=== PATIENT | female | born 1970 | race Asian ===

== ENCOUNTER 2020-01-24 19:39 | Emergency (ER) | payer OTHER ==
[~2020-01-24] VITALS: Ht 152.4 cm; Wt 53.5 kg
[2020-01-24 19:39] VITALS: BP 120/67
== END 2020-01-24 20:26 | disposition home or self-care (01) ==
LOC: ER 19:46
DX: Z11.59 Encounter for screening for other viral diseases (principal)
CPT/HCPCS: 99283; U0003

== ENCOUNTER 2020-02-21 18:35 | Emergency (ER) | payer OTHER ==
[~2020-02-21] VITALS: Ht 152.4 cm; Wt 52.6 kg
[2020-02-21 18:38] VITALS: BP 117/75
--- NOTE | 2020-02-21 18:58 | NUR ---
Patient discharged to home in stable condition. Written and verbal after care instructions given. Patient verbalizes understanding of instruction.
--- NOTE | 2020-02-23 06:40 | NUR ---
RECEIVED RESULTS FROM LAB. NEGATIVE COVID
== END 2020-02-21 18:58 | disposition home or self-care (01) ==
LOC: ER 18:37
DX: Z03.818 Encounter for observation for suspected exposure to other biological agents ruled out (principal)
CPT/HCPCS: 99283; C9803; U0003

== ENCOUNTER 2020-03-03 18:57 | Emergency (ER) | payer OTHER ==
[~2020-03-03] VITALS: Ht 152.4 cm; Wt 52.6 kg
[2020-03-03 19:03] VITALS: BP 111/26
--- NOTE | 2020-03-03 19:19 | NUR ---
CORONAVIRUS SWAB SAMPLE COLLECTED AND SENT TO LAB.
== END 2020-03-03 19:24 | disposition home or self-care (01) ==
LOC: ER 18:57
DX: Z11.59 Encounter for screening for other viral diseases (principal)
CPT/HCPCS: 99283; C9803; U0003

== ENCOUNTER 2020-03-13 18:47 | Emergency (ER) | payer OTHER ==
[~2020-03-13] VITALS: Ht 152.4 cm; Wt 52.6 kg
[2020-03-13 18:54] VITALS: BP 132/93
--- NOTE | 2020-03-17 00:18 | NUR ---
RECEIVED COVID NEGATIVE RESULT FROM LAB
== END 2020-03-13 19:08 | disposition home or self-care (01) ==
LOC: ER 18:48
DX: Z03.818 Encounter for observation for suspected exposure to other biological agents ruled out (principal)
CPT/HCPCS: 99283; C9803; U0003

== ENCOUNTER 2020-03-19 19:26 | Emergency (ER) | payer OTHER ==
[~2020-03-19] VITALS: Ht 152.4 cm; Wt 52.6 kg
== END 2020-03-19 20:02 | disposition home or self-care (01) ==
LOC: ER 19:28
DX: Z03.818 Encounter for observation for suspected exposure to other biological agents ruled out (principal)
CPT/HCPCS: 99283; C9803; U0003

== ENCOUNTER 2020-03-26 19:36 | Emergency (ER) | payer OTHER ==
[~2020-03-26] VITALS: Ht 152.4 cm; Wt 52.6 kg
[2020-03-26 19:43] VITALS: BP 116/68
--- NOTE | 2020-03-26 19:44 | NUR ---
CALLED FOR COVID TEST
--- NOTE | 2020-03-26 20:30 | NUR ---
Patient discharged to home in stable condition. Written and verbal after care instructions given. Patient verbalizes understanding of instruction. Pt ambulatory with a steady gait
--- NOTE | 2020-03-26 20:30 | NUR ---
covid swab done and sent to lab
== END 2020-03-26 20:31 | disposition home or self-care (01) ==
LOC: ER 19:41
DX: Z11.59 Encounter for screening for other viral diseases (principal)
CPT/HCPCS: 99283; C9803; U0003

== ENCOUNTER 2020-04-30 15:27 | Emergency (ER) | payer OTHER ==
[~2020-04-30] VITALS: Ht 152.4 cm; Wt 51.7 kg
[2020-04-30 15:36] VITALS: BP 116/70
--- NOTE | 2020-04-30 15:53 | NUR ---
COVID SWAB SENT
== END 2020-04-30 15:53 | disposition home or self-care (01) ==
LOC: ER 15:27
DX: Z20.828 Contact with and (suspected) exposure to other viral communicable diseases (principal)
CPT/HCPCS: 99283; C9803; U0003

== ENCOUNTER 2020-05-07 15:50 | Emergency (ER) | payer OTHER ==
[~2020-05-07] VITALS: Ht 152.4 cm; Wt 51.3 kg
[2020-05-07 15:59] VITALS: BP 135/77
--- NOTE | 2020-05-08 12:57 | NUR ---
Negative COVID PCR results
== END 2020-05-07 16:32 | disposition home or self-care (01) ==
LOC: ER 15:54
DX: Z20.828 Contact with and (suspected) exposure to other viral communicable diseases (principal)
CPT/HCPCS: 99283; C9803; U0003

== ENCOUNTER 2020-06-01 19:58 | Emergency (ER) | payer OTHER ==
[~2020-06-01] VITALS: Ht 152.4 cm; Wt 51.3 kg
[2020-06-01 19:59] VITALS: BP 132/64
== END 2020-06-01 20:08 | disposition home or self-care (01) ==
LOC: ER 19:59
DX: Z20.828 Contact with and (suspected) exposure to other viral communicable diseases (principal)
CPT/HCPCS: 99283; C9803; U0003

== ENCOUNTER 2020-06-08 15:47 | Emergency (ER) | payer OTHER ==
[~2020-06-08] VITALS: Ht 152.4 cm; Wt 51.3 kg
[2020-06-08 15:48] VITALS: BP 135/81
--- NOTE | 2020-06-08 16:16 | NUR ---
COVID SWAB ADONE AND SENT TO LAB
== END 2020-06-08 16:18 | disposition home or self-care (01) ==
LOC: ER 15:48
DX: Z20.828 Contact with and (suspected) exposure to other viral communicable diseases (principal)
CPT/HCPCS: 99283; C9803; U0003

== ENCOUNTER 2020-06-15 14:20 | Emergency (ER) | payer OTHER ==
[~2020-06-15] VITALS: Ht 152.4 cm; Wt 51.3 kg
[2020-06-15 14:43] VITALS: BP 128/81
--- NOTE | 2020-06-15 15:38 | NUR ---
Patient discharged to home in stable condition. Written and verbal after care instructions given. Patient verbalizes understanding of instruction.
== END 2020-06-15 15:39 | disposition home or self-care (01) ==
LOC: ER 14:42
DX: Z20.828 Contact with and (suspected) exposure to other viral communicable diseases (principal)
CPT/HCPCS: 99283; C9803; U0003

== ENCOUNTER 2020-06-22 14:32 | Emergency (ER) | payer OTHER ==
[~2020-06-22] VITALS: Ht 152.4 cm; Wt 51.3 kg
[2020-06-22 14:45] VITALS: BP 135/81
--- NOTE | 2020-06-22 15:10 | NUR ---
Patient discharged to home in stable condition. Written and verbal after care instructions given. Patient verbalizes understanding of instruction. Pt ambulatory with a steady gait
--- NOTE | 2020-06-22 15:10 | NUR ---
COVID SWAB DONE AND SENT TO LAB
== END 2020-06-22 15:11 | disposition home or self-care (01) ==
LOC: ER 14:42
DX: Z20.828 Contact with and (suspected) exposure to other viral communicable diseases (principal)
CPT/HCPCS: 99283; C9803; U0003

== ENCOUNTER 2020-06-29 15:40 | Emergency (ER) | payer OTHER ==
[~2020-06-29] VITALS: Ht 152.4 cm; Wt 51.3 kg
[2020-06-29 15:43] VITALS: BP 117/75
--- NOTE | 2020-06-29 16:07 | NUR ---
COVID SWAB SENT. Patient discharged to home in stable condition. Written and verbal after care instructions given. Patient verbalizes understanding of instruction.
== END 2020-06-29 16:09 | disposition home or self-care (01) ==
LOC: ER 15:41
DX: Z20.828 Contact with and (suspected) exposure to other viral communicable diseases (principal)
CPT/HCPCS: 99283; C9803; U0003

== ENCOUNTER 2020-07-06 15:02 | Emergency (ER) | payer OTHER ==
[~2020-07-06] VITALS: Ht 152.4 cm; Wt 51.3 kg
[2020-07-06 15:05] VITALS: BP 110/65
--- NOTE | 2020-07-06 15:17 | NUR ---
COVID SWAB DONE AND SENT TO LAB
--- NOTE | 2020-07-06 15:18 | NUR ---
Patient discharged to home in stable condition. Written and verbal after care instructions given. Patient verbalizes understanding of instruction. Pt ambulatory with a steady gait
== END 2020-07-06 15:18 | disposition home or self-care (01) ==
LOC: ER 15:04
DX: Z20.828 Contact with and (suspected) exposure to other viral communicable diseases (principal)
CPT/HCPCS: 99283; C9803; U0003

== ENCOUNTER 2020-07-13 14:32 | Emergency (ER) | payer OTHER ==
[~2020-07-13] VITALS: Ht 152.4 cm; Wt 51.3 kg
[2020-07-13 14:33] VITALS: BP 121/65
--- NOTE | 2020-07-13 14:58 | NUR ---
Patient discharged to home in stable condition. Written and verbal after care instructions given. Patient verbalizes understanding of instruction.
== END 2020-07-13 14:59 | disposition home or self-care (01) ==
LOC: ER 14:37
DX: Z20.828 Contact with and (suspected) exposure to other viral communicable diseases (principal)
CPT/HCPCS: 99283; C9803; U0003

== ENCOUNTER 2020-07-20 15:43 | Emergency (ER) | payer OTHER ==
[~2020-07-20] VITALS: Ht 152.4 cm; Wt 51.3 kg
[2020-07-20 15:46] VITALS: BP 112/70
== END 2020-07-20 16:32 | disposition home or self-care (01) ==
LOC: ER 15:45
DX: Z20.828 Contact with and (suspected) exposure to other viral communicable diseases (principal)
CPT/HCPCS: 99283; C9803; U0003

== ENCOUNTER 2020-07-27 15:39 | Emergency (ER) | payer OTHER ==
[~2020-07-27] VITALS: Ht 154.9 cm; Wt 51.3 kg
[2020-07-27 15:44] VITALS: BP 111/70
--- NOTE | 2020-07-27 16:17 | NUR ---
covid swab collected and sent to lab
--- NOTE | 2020-07-27 16:19 | NUR ---
Patient discharged to home in stable condition. Written and verbal after care instructions given. Patient verbalizes understanding of instruction.
== END 2020-07-27 16:18 | disposition home or self-care (01) ==
LOC: ER 15:40
DX: Z20.828 Contact with and (suspected) exposure to other viral communicable diseases (principal)
CPT/HCPCS: 99283; C9803; U0003

== ENCOUNTER 2020-08-06 08:02 | Emergency (ER) | payer OTHER ==
[~2020-08-06] VITALS: Ht 154.9 cm; Wt 51.3 kg
[2020-08-06 08:05] VITALS: BP 128/70
--- NOTE | 2020-08-06 08:36 | NUR ---
Patient discharged to home in stable condition. Written and verbal after care instructions given. Patient verbalizes understanding of instruction.
== END 2020-08-06 08:37 | disposition home or self-care (01) ==
LOC: ER 08:03
DX: Z20.828 Contact with and (suspected) exposure to other viral communicable diseases (principal)
CPT/HCPCS: 99283; C9803; U0003

== ENCOUNTER 2020-08-13 20:08 | Emergency (ER) | payer OTHER ==
[~2020-08-13] VITALS: Ht 154.9 cm; Wt 51.3 kg
[2020-08-13 20:12] VITALS: BP 132/64
== END 2020-08-13 21:13 | disposition home or self-care (01) ==
LOC: ER 20:08
DX: Z20.828 Contact with and (suspected) exposure to other viral communicable diseases (principal)
CPT/HCPCS: 99283; C9803; U0003

== ENCOUNTER 2020-09-01 19:48 | Emergency (ER) | payer OTHER ==
[~2020-09-01] VITALS: Ht 152.4 cm; Wt 51.3 kg
[2020-09-01 19:53] VITALS: BP 132/64
== END 2020-09-01 20:04 | disposition home or self-care (01) ==
LOC: ER 19:49
DX: Z20.828 Contact with and (suspected) exposure to other viral communicable diseases (principal)
CPT/HCPCS: 99283; C9803; U0003

== ENCOUNTER 2021-03-19 11:12 | Emergency (ER) | payer OTHER ==
[~2021-03-19] VITALS: Ht 152.4 cm; Wt 52.6 kg
[2021-03-19 11:16] VITALS: BP 112/70
--- NOTE | 2021-03-19 11:18 | NUR ---
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 denies any symptoms. Respiration regular and unlabored. Will continue to monitor the patient.
--- NOTE | 2021-03-19 11:38 | NUR ---
covid swabbed collected and sent to lab.
== END 2021-03-19 11:39 | disposition home or self-care (01) ==
LOC: ER 11:16
DX: Z20.822 Contact with and (suspected) exposure to COVID-19 (principal)
CPT/HCPCS: 99283; C9803; U0003

== ENCOUNTER 2021-03-29 14:51 | Emergency (ER) | payer OTHER ==
[~2021-03-29] VITALS: Ht 152.4 cm; Wt 52.2 kg
[2021-03-29 15:02] VITALS: BP 115/68
--- NOTE | 2021-03-29 15:31 | NUR ---
COVID SWAB SENT, Patient discharged to home in stable condition. Written and verbal after care instructions given. Patient verbalizes understanding of instruction.
== END 2021-03-29 15:31 | disposition home or self-care (01) ==
LOC: ER 15:06
DX: Z20.822 Contact with and (suspected) exposure to COVID-19 (principal)
CPT/HCPCS: 99283; C9803; U0003

== ENCOUNTER 2021-04-08 16:11 | Emergency (ER) | payer OTHER ==
[~2021-04-08] VITALS: Ht 149.9 cm; Wt 45.4 kg
[2021-04-08 16:21] VITALS: BP 128/81
--- NOTE | 2021-04-08 16:25 | NUR ---
BIBS FOR ROUTINE COVID TESTING. DENIES SYMPTOMS.
--- NOTE | 2021-04-08 16:41 | NUR ---
Patient discharged to home in stable condition. Written and verbal after care instructions given. Patient verbalizes understanding of instruction.
== END 2021-04-08 16:42 | disposition home or self-care (01) ==
LOC: ER 16:12
DX: Z20.822 Contact with and (suspected) exposure to COVID-19 (principal)
CPT/HCPCS: 99283; C9803; U0003

== ENCOUNTER 2021-04-12 19:33 | Emergency (ER) | payer OTHER ==
[~2021-04-12] VITALS: Ht 152.4 cm; Wt 52.2 kg
[2021-04-12 19:35] VITALS: BP 132/67
== END 2021-04-12 20:11 | disposition home or self-care (01) ==
LOC: ER 19:34
DX: Z20.822 Contact with and (suspected) exposure to COVID-19 (principal)
CPT/HCPCS: 99283; C9803; U0003

== ENCOUNTER 2021-04-16 20:30 | Emergency (ER) | payer OTHER ==
[~2021-04-16] VITALS: Ht 152.4 cm; Wt 52.2 kg
[2021-04-16 20:33] VITALS: BP 124/67
== END 2021-04-16 21:05 | disposition home or self-care (01) ==
LOC: ER 20:30
DX: Z20.822 Contact with and (suspected) exposure to COVID-19 (principal)
CPT/HCPCS: 99283; C9803; U0003

== ENCOUNTER 2025-03-21 12:38 | Outpatient (CLI) | payer OTHER ==
[2025-03-21 13:22] LABS: ASPARTATE AMINOTRANSFERASE 20.0 U/L (15-37); CALCIUM, SERUM 8.7 mg/dL (8.5-10.1); CREATININE 0.5 mg/dL (0.6-1.3); SODIUM SERUM 141.0 mmol/L (136-145); TOTAL PROTEIN, SERUM 8.0 g/dL (6.4-8.2); UREA NITROGEN, BLOOD 10.0 mg/dL (7-18)
[2025-03-21 13:25] LABS: GAMMA GLUTAMYL TRANSFERASE 17.0 U/L (5-85)
== END 2025-03-21 23:59 | disposition home or self-care (01) ==
LOC: LAB 12:38
PROVIDERS: ATTEND Legal Medicine
DX: B18.1 Chronic viral hepatitis B without delta-agent (principal)
CPT/HCPCS: 36415; 80053-TC; 82977-TC; 83615-TC; 87517